=== PATIENT | female | born 1950 | race Caucasian/White ===

== ENCOUNTER 2017-08-18 10:42 | Emergency (ER) | payer MEDICARE ==
[~2017-08-18] VITALS: Ht 162.6 cm; Wt 61.0 kg
[2017-08-18] MEDS ORDERED: TRAZODONE100 MG PO (11:54)
[2017-08-18] MEDS ORDERED: TEMAZEPAM15 MG PO (11:54)
[2017-08-18] MEDS ORDERED: CYMBALTA60 MG PO (11:55)
[2017-08-18] MEDS ORDERED: VIIBRYD40 MG PO (11:56)
[2017-08-18] MEDS ORDERED: NEURONTIN100 MG PO (11:56)
[2017-08-18] MEDS ORDERED: ALPRAZOLAM1 MG PO (11:56)
[2017-08-18] MEDS ORDERED: METOPROL TAR25 MG PO (11:57)
[2017-08-18 12:13] LABS: URINE BILIRUBIN - DIPSTICK NEGATIVE (NEGATIVE); URINE BLOOD DIPSTICK MODERATE (NEGATIVE); URINE COLOR YELLOW; URINE GLUCOSE - DIPSTICK NEGATIVE (NEGATIVE); URINE KETONE NEGATIVE (NEGATIVE); URINE NITRITE - DIPSTICK NEGATIVE (Negative); URINE PROTEIN - DIPSTICK TRACE mg/dL (NEG-TRACE); URINE SPECIFIC GRAVITY 1.025; URINE UROBILINOGEN - DIPSTICK 0.2 E.U./dL (0.2)
[2017-08-18 12:15] LABS: URINE CLARITY HAZY; URINE LEUK ESTERASE MODERATE (NEGATIVE)
[2017-08-18 12:17] LABS: URINE BACTERIA FEW hpf; URINE EPITHELIAL CELLS MODERATE EPI/hpf (0-FEW); URINE WBC 20-50 WBC/hpf (0-5)
[2017-08-18 12:29] VITALS: BP 110/70
[2017-08-18] MEDS ORDERED: CEPHALEXIN500 M1 PO (13:04)
== END 2017-08-18 13:10 | disposition home or self-care (01) ==
LOC: ED 10:42
PROVIDERS: Family Medicine
DX: N39.0 Urinary tract infection, site not specified (principal); B96.20 Unspecified Escherichia coli [E. coli] as the cause of diseases classified elsewhere; Z16.12 Extended spectrum beta lactamase (ESBL) resistance; R30.0 Dysuria

== ENCOUNTER 2018-05-04 10:30 | Emergency (ER) | payer MEDICARE, MEDICAID ==
[~2018-05-04] VITALS: Ht 162.6 cm; Wt 60.5 kg
[~2018-05-04 10:30] MED LIST: ALPRAZOLAM1 MG PO; ATORVASTATIN CA20 MG PO; CEPHALEXIN500 M1 PO; CYMBALTA60 MG PO; ESCITALOPRAM OX10 MG PO; METOPROL TAR25 MG PO; NEURONTIN100 MG PO; TEMAZEPAM15 MG PO; TRAZODONE100 MG PO; VIIBRYD40 MG PO
[2018-05-04] MEDS ORDERED: RESTORIL15 MG PO (11:02)
[2018-05-04 11:12] LABS: HEMATOCRIT 37.1 % (37.0-47.0); HEMOGLOBIN 12.1 g/dl (12.0-16.0); IMMATURE GRANULOCYTES 0.5 % (0.0-5.0); MEAN CELL VOLUME 87.1 fL CALC (80.0-100.0); MEAN CORPUSCULAR HGB 28.4 pG CALC (26.0-32.0); MEAN CORPUSCULAR HGB CONC 32.6 g/L CALC (32.0-36.0); NEUT# 3.37 thou/uL (2.00-7.15); RED BLOOD COUNT 4.26 mill/uL (4.20-5.60); RED CELL DISTRI WIDTH 12.1 % (11.5-15.5)
[2018-05-04 11:28] LABS: ANION GAP 13 (6-22 (CALC)); BILIRUBIN, TOTAL 0.4 mg/dL (0.0-1.4); BUN 10 mg/dL (8-23); BUN/CREATININE RATIO 15 (12-20 (CALC)); CARBON DIOXIDE 27 mmol/l (22-30); CHLORIDE 103 mmol/l (95-108); CREATININE 0.7 mg/dL (0.5-1.0); GFR > 60 ML/MIN (>=60 (CALC)); GFR FOR AFR.AMER. > 60 ML/MIN (>=60 (CALC)); POTASSIUM 3.7 mmol/l (3.5-5.1); SGOT/AST 17 u/l (9-36); SGPT/ALT 28 u/l (11-66); SODIUM 140 mmol/l (137-146)
[2018-05-04 11:32] LABS: ALBUMIN 3.7 g/dL (3.2-5.0); ALKALINE PHOSPHATASE 114 u/l (38-126); TOTAL PROTEIN 6.4 g/dL (6.3-8.2)
[2018-05-04 11:36] LABS: URINE BILIRUBIN - DIPSTICK NEGATIVE (NEGATIVE); URINE BLOOD DIPSTICK NEGATIVE (NEGATIVE); URINE CLARITY CLEAR; URINE COLOR YELLOW; URINE GLUCOSE - DIPSTICK NEGATIVE (NEGATIVE); URINE KETONE NEGATIVE (NEGATIVE); URINE LEUK ESTERASE NEGATIVE (NEGATIVE); URINE NITRITE - DIPSTICK NEGATIVE (Negative); URINE PROTEIN - DIPSTICK NEGATIVE (NEG-TRACE); URINE SPECIFIC GRAVITY <=1.005; URINE UROBILINOGEN - DIPSTICK 0.2 E.U./dL (0.2)
[2018-05-04 11:38] LABS: MYOGLOBIN 37 ng/mL (0 - 62)
[2018-05-04] MEDS ORDERED: ANTIVERT PO (12:11)
[2018-05-04 12:22] VITALS: BP 132/60
== END 2018-05-04 12:31 | disposition home or self-care (01) ==
LOC: ED 10:30
DX: R42 Dizziness and giddiness (principal); R91.8 Other nonspecific abnormal finding of lung field; I48.91 Unspecified atrial fibrillation; S42.002D Fracture of unspecified part of left clavicle, subsequent encounter for fracture with routine healing; S22.42XD Multiple fractures of ribs, left side, subsequent encounter for fracture with routine healing; W19.XXXD Unspecified fall, subsequent encounter; Z86.73 Personal history of transient ischemic attack (TIA), and cerebral infarction without residual deficits

== ENCOUNTER 2018-08-29 19:57 | Emergency (ER) | payer MEDICARE, MEDICAID ==
[~2018-08-29] VITALS: Ht 162.6 cm; Wt 60.0 kg
[~2018-08-29 19:57] MED LIST changes: +ANTIVERT PO; +RESTORIL15 MG PO
[2018-08-29] MEDS ORDERED: MIRALAX3350 N1 PO (20:57)
[2018-08-29] MEDS ORDERED: MAGNESIUM296 ML/BTL PO (20:57)
[2018-08-29 21:06] VITALS: BP 120/70
== END 2018-08-29 21:16 | disposition home or self-care (01) ==
LOC: ED 19:57
DX: K59.00 Constipation, unspecified (principal); I48.91 Unspecified atrial fibrillation; Z86.73 Personal history of transient ischemic attack (TIA), and cerebral infarction without residual deficits

== ENCOUNTER 2018-09-28 11:46 | Emergency (ER) | payer MEDICARE, MEDICAID ==
[~2018-09-28] VITALS: Ht 162.6 cm; Wt 59.0 kg
[~2018-09-28 11:46] MED LIST changes: +MAGNESIUM296 ML/BTL PO; +MIRALAX3350 N1 PO
[2018-09-28] MEDS ORDERED: CIPROFLOXACN500 MG PO (12:33)
[2018-09-28 13:16] LABS: HEMATOCRIT 35.7 % (37.0-47.0); HEMOGLOBIN 11.3 g/dl (12.0-16.0); IMMATURE GRANULOCYTES 0.2 % (0.0-5.0); MEAN CELL VOLUME 89.3 fL CALC (80.0-100.0); MEAN CORPUSCULAR HGB 28.3 pG CALC (26.0-32.0); MEAN CORPUSCULAR HGB CONC 31.7 g/L CALC (32.0-36.0); NEUT# 2.05 thou/uL (2.00-7.15); RED CELL DISTRI WIDTH 12.2 % (11.5-15.5)
[2018-09-28 13:34] LABS: ALBUMIN 3.7 g/dL (3.2-5.0); ANION GAP 12 (6-22 (CALC)); BILIRUBIN, TOTAL 0.7 mg/dL (0.0-1.4); BUN 12 mg/dL (8-23); BUN/CREATININE RATIO 16 (12-20 (CALC)); CARBON DIOXIDE 29 mmol/l (22-30); CHLORIDE 97 mmol/l (95-108); CREATININE 0.8 mg/dL (0.5-1.0); GFR > 60 ML/MIN (>=60 (CALC)); GFR FOR AFR.AMER. > 60 ML/MIN (>=60 (CALC)); POTASSIUM 4.3 mmol/l (3.5-5.1); SGOT/AST 24 u/l (9-36); SODIUM 134 mmol/l (137-146); TOTAL PROTEIN 6.3 g/dL (6.3-8.2)
[2018-09-28 13:36] LABS: ALKALINE PHOSPHATASE 52 u/l (38-126)
[2018-09-28 16:25] VITALS: BP 109/53
== END 2018-09-28 16:25 | disposition home or self-care (01) ==
LOC: ED 11:46
DX: K59.00 Constipation, unspecified (principal); I48.91 Unspecified atrial fibrillation; Z86.73 Personal history of transient ischemic attack (TIA), and cerebral infarction without residual deficits

== ENCOUNTER 2020-12-11 12:22 | Emergency (ER) | payer MEDICARE, MEDICAID ==
[~2020-12-11 12:22] MED LIST changes: +CIPROFLOXACN500 MG PO; +LEXAPRO20 MG PO
[2020-12-11 12:42] VITALS: BP 112/70
[2020-12-11] MEDS ORDERED: FOLIC ACID1 MG PO (12:45)
[2020-12-11] MEDS ORDERED: ELIQUIS5 MG PO (12:45)
[2020-12-11] MEDS ORDERED: VENLAFAXINE HCL75 M1 PO (12:45)
[2020-12-11] MEDS ORDERED: RESTORIL15 MG PO (12:51)
[2020-12-11] MEDS ORDERED: XANAX1 MG PO (12:51)
== END 2020-12-11 13:04 | disposition home or self-care (01) ==
LOC: ED 12:22
DX: Z76.0 Encounter for issue of repeat prescription (principal); F41.9 Anxiety disorder, unspecified; I48.91 Unspecified atrial fibrillation; Z86.73 Personal history of transient ischemic attack (TIA), and cerebral infarction without residual deficits

== ENCOUNTER 2021-05-16 17:52 | Emergency (ER) | payer MEDICARE, MEDICAID ==
[~2021-05-16] VITALS: Ht 162.6 cm; Wt 60.0 kg
[~2021-05-16 17:52] MED LIST changes: +ELIQUIS5 MG PO; +FOLIC ACID1 MG PO; +VENLAFAXINE HCL75 M1 PO; +XANAX1 MG PO
[2021-05-16 21:10] VITALS: BP 104/72
== END 2021-05-16 21:10 | disposition home or self-care (01) ==
LOC: ED 17:52
DX: S93.402A Sprain of unspecified ligament of left ankle, initial encounter (principal); S93.602A Unspecified sprain of left foot, initial encounter; I48.91 Unspecified atrial fibrillation; W17.89XA Other fall from one level to another, initial encounter; Y92.008 Other place in unspecified non-institutional (private) residence as the place of occurrence of the external cause; Z86.73 Personal history of transient ischemic attack (TIA), and cerebral infarction without residual deficits; Z86.718 Personal history of other venous thrombosis and embolism; Z86.711 Personal history of pulmonary embolism

== ENCOUNTER 2021-08-03 12:06 | Emergency (ER) | payer MEDICARE, MEDICAID ==
[~2021-08-03] VITALS: Ht 162.6 cm; Wt 63.6 kg
[2021-08-03] MEDS ORDERED: LEXAPRO20 MG PO (12:28)
[2021-08-03] MEDS ORDERED: XANAX1 MG PO (12:29)
[2021-08-03] MEDS ORDERED: VENLAFAXINE150 M1 PO (12:30)
[2021-08-03] MEDS ORDERED: TRAZODONE100 MG PO (12:31)
[2021-08-03 12:53] LABS: HEMATOCRIT 40.2 % (37.0-47.0); HEMOGLOBIN 12.9 g/dl (12.0-16.0); IMMATURE GRANULOCYTES 0.4 % (0.0-5.0); MEAN CELL VOLUME 88.7 fL CALC (80.0-100.0); MEAN CORPUSCULAR HGB 28.5 pG CALC (26.0-32.0); MEAN CORPUSCULAR HGB CONC 32.1 g/dL CAL (32.0-36.0); NEUT# 2.42 thou/uL (2.00-7.15); RED BLOOD COUNT 4.53 mill/uL (4.20-5.60); RED CELL DISTRI WIDTH 11.9 % (11.5-15.5)
[2021-08-03 13:00] LABS: ALBUMIN 4.1 g/dL (3.2-5.0); ALKALINE PHOSPHATASE 64 u/l (38-126); ANION GAP 12 (6-22 (CALC)); BUN 9 mg/dL (8-23); BUN/CREATININE RATIO 11 (12-20 (CALC)); CARBON DIOXIDE 30 mmol/l (22-30); CHLORIDE 100 mmol/l (95-108); CREATININE 0.9 mg/dL (0.5-1.0); GFR > 60 ML/MIN (>=60 (CALC)); GFR FOR AFR.AMER. > 60 ML/MIN (>=60 (CALC)); MAGNESIUM 1.8 mg/dL (1.6-2.3); POTASSIUM 3.4 mmol/l (3.5-5.1); SGOT/AST 25 u/l (9-36); SODIUM 138 mmol/l (137-146); TOTAL PROTEIN 7.5 g/dL (6.3-8.2)
[2021-08-03 13:09] LABS: BILIRUBIN, TOTAL 0.6 mg/dL (0.0-1.4)
[2021-08-03 13:11] LABS: URINE BILIRUBIN - DIPSTICK NEGATIVE (NEGATIVE); URINE BLOOD DIPSTICK NEGATIVE (NEGATIVE); URINE COLOR YELLOW; URINE GLUCOSE - DIPSTICK NEGATIVE (NEGATIVE); URINE KETONE NEGATIVE (NEGATIVE); URINE LEUK ESTERASE TRACE (NEGATIVE); URINE PH 6.5 (4.5-8.0); URINE PROTEIN - DIPSTICK NEGATIVE (NEG-TRACE); URINE UROBILINOGEN - DIPSTICK 0.2 E.U./dL (0.2)
[2021-08-03 13:12] LABS: URINE NITRITE - DIPSTICK NEGATIVE (Negative)
[2021-08-03 14:29] VITALS: BP 124/67
== END 2021-08-03 14:29 | disposition home or self-care (01) ==
LOC: ED 12:06
PROVIDERS: Emergency Medicine
DX: F41.0 Panic disorder [episodic paroxysmal anxiety] (principal); I48.91 Unspecified atrial fibrillation; Z86.711 Personal history of pulmonary embolism; Z79.01 Long term (current) use of anticoagulants; Z85.118 Personal history of other malignant neoplasm of bronchus and lung; Z86.73 Personal history of transient ischemic attack (TIA), and cerebral infarction without residual deficits; Z20.822 Contact with and (suspected) exposure to COVID-19
CPT/HCPCS: J2060

== ENCOUNTER 2021-08-18 11:12 | Emergency (ER) | payer MEDICARE, MEDICAID ==
[~2021-08-18] VITALS: Ht 162.6 cm; Wt 61.4 kg
[~2021-08-18 11:12] MED LIST changes: +VENLAFAXINE150 M1 PO
[2021-08-18 14:15] LABS: HEMATOCRIT 38.5 % (37.0-47.0); HEMOGLOBIN 12.4 g/dl (12.0-16.0); MEAN CELL VOLUME 88.5 fL CALC (80.0-100.0); MEAN CORPUSCULAR HGB 28.5 pG CALC (26.0-32.0); MEAN CORPUSCULAR HGB CONC 32.2 g/dL CAL (32.0-36.0); NEUT# 1.12 thou/uL (2.00-7.15); RED BLOOD COUNT 4.35 mill/uL (4.20-5.60); RED CELL DISTRI WIDTH 11.9 % (11.5-15.5)
[2021-08-18 14:25] LABS: ALBUMIN 3.8 g/dL (3.2-5.0); ALKALINE PHOSPHATASE 92 u/l (38-126); BILIRUBIN, TOTAL 0.5 mg/dL (0.0-1.4); BUN 12 mg/dL (8-23); BUN/CREATININE RATIO 16 (12-20 (CALC)); CARBON DIOXIDE 32 mmol/l (22-30); CHLORIDE 97 mmol/l (95-108); CREATININE 0.8 mg/dL (0.5-1.0); GFR > 60 ML/MIN (>=60 (CALC)); GFR FOR AFR.AMER. > 60 ML/MIN (>=60 (CALC)); SODIUM 132 mmol/l (137-146)
[2021-08-18 14:26] LABS: ANION GAP 7 (6-22 (CALC)); POTASSIUM 4.1 mmol/l (3.5-5.1); SGOT/AST 62 u/l (9-36)
[2021-08-18] MEDS ORDERED: ZOFRAN4 M1 PO (15:27)
[2021-08-18 16:54] VITALS: BP 139/67
== END 2021-08-18 16:57 | disposition home or self-care (01) ==
LOC: ED 11:12
PROVIDERS: Family Medicine
DX: U07.1 COVID-19 (principal); I48.91 Unspecified atrial fibrillation; Z86.73 Personal history of transient ischemic attack (TIA), and cerebral infarction without residual deficits; Z85.9 Personal history of malignant neoplasm, unspecified; Z86.711 Personal history of pulmonary embolism; Z86.718 Personal history of other venous thrombosis and embolism

== ENCOUNTER 2021-11-05 10:16 | Observation (INO) | payer MEDICARE, MEDICAID ==
[2021-11-05] VITALS (21 sets, daily range): BP systolic 106–144; BP diastolic 44–69
[~2021-11-05] VITALS: Ht 162.6 cm; Wt 60.0 kg
[~2021-11-05 10:16] MED LIST changes: +ZOFRAN4 M1 PO
[2021-11-05 11:01] LABS: HEMATOCRIT 39.6 % (37.0-47.0); HEMOGLOBIN 12.5 g/dl (12.0-16.0); IMMATURE GRANULOCYTES 0.2 % (0.0-5.0); MEAN CORPUSCULAR HGB 28.4 pG CALC (26.0-32.0); MEAN CORPUSCULAR HGB CONC 31.6 g/dL CAL (32.0-36.0); NEUT# 3.08 thou/uL (2.00-7.15); RED BLOOD COUNT 4.4 mill/uL (4.20-5.60); RED CELL DISTRI WIDTH 12.3 % (11.5-15.5)
[2021-11-05 11:18] LABS: ALBUMIN 4.1 g/dL (3.2-5.0); ALKALINE PHOSPHATASE 56 u/l (38-126); BILIRUBIN, TOTAL 0.5 mg/dL (0.0-1.4); BUN 9 mg/dL (8-23); BUN/CREATININE RATIO 10 (12-20 (CALC)); CARBON DIOXIDE 28 mmol/l (22-30); CHLORIDE 104 mmol/l (95-108); CREATININE 0.9 mg/dL (0.5-1.0); GFR > 60 ML/MIN (>=60 (CALC)); GFR FOR AFR.AMER. > 60 ML/MIN (>=60 (CALC)); SGOT/AST 23 u/l (9-36); SODIUM 138 mmol/l (137-146); TOTAL PROTEIN 7.4 g/dL (6.3-8.2)
[2021-11-05 11:20] LABS: ANION GAP 10 (6-22 (CALC)); POTASSIUM 3.5 mmol/l (3.5-5.1)
[2021-11-05] MEDS ORDERED: VENLAFAXINE HCL75 M1 PO (15:23)
[2021-11-06] VITALS: BP 106/40
[2021-11-06 04:42] VITALS: BP 103/40
[2021-11-06 05:45] LABS: HEMATOCRIT 34.1 % (37.0-47.0); HEMOGLOBIN 11.1 g/dl (12.0-16.0); MEAN CELL VOLUME 90.2 fL CALC (80.0-100.0); MEAN CORPUSCULAR HGB 29.4 pG CALC (26.0-32.0); MEAN CORPUSCULAR HGB CONC 32.6 g/dL CAL (32.0-36.0); RED BLOOD COUNT 3.78 mill/uL (4.20-5.60); RED CELL DISTRI WIDTH 12.5 % (11.5-15.5)
[2021-11-06 05:51] LABS: ANION GAP 8 (6-22 (CALC)); BUN 10 mg/dL (8-23); BUN/CREATININE RATIO 13 (12-20 (CALC)); CARBON DIOXIDE 28 mmol/l (22-30); CHLORIDE 106 mmol/l (95-108); CREATININE 0.8 mg/dL (0.5-1.0); GFR > 60 ML/MIN (>=60 (CALC)); GFR FOR AFR.AMER. > 60 ML/MIN (>=60 (CALC)); MAGNESIUM 1.8 mg/dL (1.6-2.3); POTASSIUM 3.9 mmol/l (3.5-5.1); SODIUM 138 mmol/l (137-146)
[2021-11-06 09:20] VITALS: BP 111/56
[2021-11-06 10:21] VITALS: BP 89/45
[2021-11-06 10:28] VITALS: BP 112/48
[2021-11-06] MEDS ORDERED: OMNICEF300 MG PO (11:42)
[2021-11-06] MEDS ORDERED: AZITHROMYCIN500 MG PO (11:42)
== END 2021-11-06 14:38 | disposition home or self-care (01) ==
LOC: ED 10:16 → ED-I 14:40 → ED 14:52 → MS2 14:53
PROVIDERS: Internal Medicine; ADMIT Hospitalist; ATTEND Hospitalist
DX: J18.9 Pneumonia, unspecified organism (principal); J92.9 Pleural plaque without asbestos; I48.91 Unspecified atrial fibrillation; C56.9 Malignant neoplasm of unspecified ovary; Z86.73 Personal history of transient ischemic attack (TIA), and cerebral infarction without residual deficits; Z86.711 Personal history of pulmonary embolism; Z79.01 Long term (current) use of anticoagulants; Z95.828 Presence of other vascular implants and grafts; Z20.822 Contact with and (suspected) exposure to COVID-19; M79.604 Pain in right leg
CPT/HCPCS: Q9967

== ENCOUNTER 2022-01-20 12:04 | Emergency (ER) | payer MEDICARE, MEDICAID ==
[~2022-01-20] VITALS: Ht 162.6 cm; Wt 58.0 kg
[2022-01-20] VITALS (12 sets, daily range): BP systolic 112–147; BP diastolic 52–69
[~2022-01-20 12:04] MED LIST changes: +AZITHROMYCIN500 MG PO; +OMNICEF300 MG PO
[2022-01-20 12:33] LABS: HEMATOCRIT 39.7 % (37.0-47.0); HEMOGLOBIN 12.4 g/dl (12.0-16.0); IMMATURE GRANULOCYTES 0.2 % (0.0-5.0); MEAN CELL VOLUME 89.6 fL CALC (80.0-100.0); MEAN CORPUSCULAR HGB CONC 31.2 g/dL CAL (32.0-36.0); NEUT# 2.65 thou/uL (2.00-7.15); RED BLOOD COUNT 4.43 mill/uL (4.20-5.60); RED CELL DISTRI WIDTH 11.9 % (11.5-15.5)
[2022-01-20 12:44] LABS: ALBUMIN 3.9 g/dL (3.2-5.0); ALKALINE PHOSPHATASE 53 u/l (38-126); ANION GAP 10 (6-22 (CALC)); BILIRUBIN, TOTAL 0.3 mg/dL (0.0-1.4); BUN 11 mg/dL (8-23); BUN/CREATININE RATIO 12 (12-20 (CALC)); CARBON DIOXIDE 29 mmol/l (22-30); CHLORIDE 105 mmol/l (95-108); CREATININE 0.9 mg/dL (0.5-1.0); GFR FOR AFR.AMER. > 60 ML/MIN (>=60 (CALC)); GFR OTHER RACES > 60 ML/MIN (>=60 (CALC)); POTASSIUM 3.8 mmol/l (3.5-5.1); SGOT/AST 22 u/l (9-36); SODIUM 139 mmol/l (137-146)
[2022-01-20] MEDS ORDERED: VENLAFAXINE HCL75 M1 PO (12:52)
[2022-01-20] MEDS ORDERED: ESCITALOPRAM OX10 MG PO (12:53)
[2022-01-20] MEDS ORDERED: TRAZODONE50 MG PO (12:54)
[2022-01-20] MEDS ORDERED: ELIQUIS5 MG PO (12:54)
[2022-01-20] MEDS ORDERED: TEMAZEPAM15 MG PO (12:55)
[2022-01-20] MEDS ORDERED: ALPRAZOLAM1 MG PO (12:56)
[2022-01-20] MEDS ORDERED: METOPROL TAR25 MG PO (12:56)
[2022-01-20 14:51] LABS: URINE BILIRUBIN - DIPSTICK NEGATIVE (NEGATIVE); URINE BLOOD DIPSTICK NEGATIVE (NEGATIVE); URINE COLOR YELLOW; URINE GLUCOSE - DIPSTICK NEGATIVE (NEGATIVE); URINE KETONE NEGATIVE (NEGATIVE); URINE PROTEIN - DIPSTICK NEGATIVE (NEG-TRACE); URINE SPECIFIC GRAVITY 1.015; URINE UROBILINOGEN - DIPSTICK 0.2 E.U./dL (0.2)
[2022-01-20 14:53] LABS: URINE LEUK ESTERASE SMALL (NEGATIVE); URINE NITRITE - DIPSTICK NEGATIVE (Negative)
[2022-01-20 14:59] LABS: URINE SQUAMOUS EPITHELIAL CELL FEW EPI/hpf (0-FEW)
[2022-01-20] MEDS ORDERED: OMNICEF300 M1 PO (16:24)
== END 2022-01-20 16:58 | disposition home or self-care (01) ==
LOC: ED 12:04
PROVIDERS: Family Medicine
DX: R55 Syncope and collapse (principal); N39.0 Urinary tract infection, site not specified; B96.5 Pseudomonas (aeruginosa) (mallei) (pseudomallei) as the cause of diseases classified elsewhere; M16.11 Unilateral primary osteoarthritis, right hip; I10 Essential (primary) hypertension; I48.91 Unspecified atrial fibrillation; Z86.73 Personal history of transient ischemic attack (TIA), and cerebral infarction without residual deficits; Z86.718 Personal history of other venous thrombosis and embolism; Z20.822 Contact with and (suspected) exposure to COVID-19; M79.604 Pain in right leg

== ENCOUNTER 2022-04-11 09:57 | Emergency (ER) | payer MEDICARE, MEDICAID ==
[~2022-04-11] VITALS: Ht 162.6 cm; Wt 60.9 kg
[~2022-04-11 09:57] MED LIST changes: +OMNICEF300 M1 PO; +TRAZODONE50 MG PO
[2022-04-11 10:44] LABS: URINE BILIRUBIN - DIPSTICK NEGATIVE (NEGATIVE); URINE BLOOD DIPSTICK NEGATIVE (NEGATIVE); URINE COLOR YELLOW; URINE GLUCOSE - DIPSTICK NEGATIVE (NEGATIVE); URINE KETONE NEGATIVE (NEGATIVE); URINE LEUK ESTERASE NEGATIVE (NEGATIVE); URINE PROTEIN - DIPSTICK NEGATIVE (NEG-TRACE); URINE UROBILINOGEN - DIPSTICK 0.2 E.U./dL (0.2)
[2022-04-11 10:52] LABS: HEMATOCRIT 35.2 % (37.0-47.0); HEMOGLOBIN 11.5 g/dl (12.0-16.0); IMMATURE GRANULOCYTES 0.2 % (0.0-5.0); MEAN CELL VOLUME 86.5 fL CALC (80.0-100.0); MEAN CORPUSCULAR HGB 28.3 pG CALC (26.0-32.0); MEAN CORPUSCULAR HGB CONC 32.7 g/dL CAL (32.0-36.0); NEUT# 1.97 thou/uL (2.00-7.15); RED BLOOD COUNT 4.07 mill/uL (4.20-5.60); RED CELL DISTRI WIDTH 12.2 % (11.5-15.5)
[2022-04-11 10:56] LABS: URINE NITRITE - DIPSTICK NEGATIVE (Negative)
[2022-04-11 11:09] LABS: ALKALINE PHOSPHATASE 49 u/l (38-126); ANION GAP 11 (6-22 (CALC)); BUN 8 mg/dL (8-23); BUN/CREATININE RATIO 11 (12-20 (CALC)); CARBON DIOXIDE 26 mmol/l (22-30); CHLORIDE 104 mmol/l (95-108); CREATININE 0.8 mg/dL (0.5-1.0); GFR FOR AFR.AMER. > 60 ML/MIN (>=60 (CALC)); GFR OTHER RACES > 60 ML/MIN (>=60 (CALC)); POTASSIUM 4.1 mmol/l (3.5-5.1); SGOT/AST 23 u/l (9-36); SODIUM 137 mmol/l (137-146); TOTAL PROTEIN 7.1 g/dL (6.3-8.2)
[2022-04-11 11:11] LABS: BILIRUBIN, TOTAL 0.5 mg/dL (0.0-1.4)
[2022-04-11 13:30] VITALS: BP 132/67
[2022-04-11] MEDS ORDERED: TRAMADOL HYDROC50 M1 PO (13:38)
[2022-04-11 14:00] VITALS: BP 126/62
== END 2022-04-11 14:16 | disposition home or self-care (01) ==
LOC: ED 09:57
PROVIDERS: Family Medicine
DX: M25.511 Pain in right shoulder (principal); M54.50 Low back pain, unspecified; R07.81 Pleurodynia; M89.9 Disorder of bone, unspecified; I10 Essential (primary) hypertension; I48.91 Unspecified atrial fibrillation; R53.1 Weakness; W01.0XXA Fall on same level from slipping, tripping and stumbling without subsequent striking against object, initial encounter; Y92.009 Unspecified place in unspecified non-institutional (private) residence as the place of occurrence of the external cause; Z86.73 Personal history of transient ischemic attack (TIA), and cerebral infarction without residual deficits; Z86.718 Personal history of other venous thrombosis and embolism; Z86.711 Personal history of pulmonary embolism
CPT/HCPCS: Q9967

== ENCOUNTER 2022-08-21 18:58 | Emergency (ER) | payer MEDICARE, MEDICAID ==
[2022-08-21] VITALS (15 sets, daily range): BP systolic 122–156; BP diastolic 59–77
[~2022-08-21] VITALS: Ht 162.6 cm; Wt 64.0 kg
[~2022-08-21 18:58] MED LIST changes: +TRAMADOL HYDROC50 M1 PO
[2022-08-21 19:41] LABS: BASO% 0.4 % (0-3); EOS% 2.2 % (0-8); HEMATOCRIT 32.6 % (37.0-47.0); HEMOGLOBIN 10.6 g/dl (12.0-16.0); IMMATURE GRANULOCYTES 0.2 % (0.0-5.0); MEAN CELL VOLUME 88.6 fL CALC (80.0-100.0); MEAN CORPUSCULAR HGB 28.8 pG CALC (26.0-32.0); MEAN CORPUSCULAR HGB CONC 32.5 g/dL CAL (32.0-36.0); MONO% 9.9 % (2-13); NEUT# 3.62 thou/uL (2.00-7.15); NEUT% 71.3 % (42-76); RED BLOOD COUNT 3.68 mill/uL (4.20-5.60); RED CELL DISTRI WIDTH 12.8 % (11.5-15.5)
[2022-08-21 19:59] LABS: ALBUMIN 3.7 g/dL (3.2-5.0); ALKALINE PHOSPHATASE 51 u/l (38-126); BILIRUBIN, TOTAL 0.3 mg/dL (0.0-1.4); BUN 13 mg/dL (8-23); BUN/CREATININE RATIO 18 (12-20 (CALC)); CARBON DIOXIDE 27 mmol/l (22-30); CHLORIDE 103 mmol/l (95-108); CPK 128 u/l (30-165); CREATININE 0.8 mg/dL (0.5-1.0); GFR FOR AFR.AMER. > 60 ML/MIN (>=60 (CALC)); GFR OTHER RACES > 60 ML/MIN (>=60 (CALC)); MAGNESIUM 1.9 mg/dL (1.6-2.3); SGOT/AST 34 u/l (9-36); SODIUM 137 mmol/l (137-146); TOTAL PROTEIN 6.7 g/dL (6.3-8.2)
[2022-08-21 20:03] LABS: ACT PARTIAL THROMBO TIME 29.2 SECONDS (20.0-32.5); PROTHROMBIN TIME 10.4 SECONDS (9.0-12.5)
[2022-08-21 20:05] LABS: ANION GAP 10 (6-22 (CALC)); POTASSIUM 2.8 mmol/l (3.5-5.1)
[2022-08-21 20:29] LABS: TSH, 3RD GENERATION 2.13 uIU/mL (0.47 - 4.68)
[2022-08-21 21:30] LABS: URINE BILIRUBIN - DIPSTICK NEGATIVE (NEGATIVE); URINE BLOOD DIPSTICK NEGATIVE (NEGATIVE); URINE COLOR YELLOW; URINE GLUCOSE - DIPSTICK NEGATIVE (NEGATIVE); URINE KETONE NEGATIVE (NEGATIVE); URINE LEUK ESTERASE NEGATIVE (NEGATIVE); URINE PH 5.5 (4.5-8.0); URINE PROTEIN - DIPSTICK NEGATIVE (NEG-TRACE); URINE SPECIFIC GRAVITY >=1.030; URINE UROBILINOGEN - DIPSTICK 0.2 E.U./dL (0.2)
[2022-08-21 21:32] LABS: URINE NITRITE - DIPSTICK NEGATIVE (Negative)
[2022-08-21] MEDS ORDERED: POT CHLORIDE20 ME2 PO (21:49)
== END 2022-08-21 22:48 | disposition home or self-care (01) ==
LOC: ED 18:58
PROVIDERS: Family Medicine
DX: U07.1 COVID-19 (principal); R53.1 Weakness; R51.9 Headache, unspecified; E87.6 Hypokalemia; I10 Essential (primary) hypertension; I48.91 Unspecified atrial fibrillation; Z86.711 Personal history of pulmonary embolism; Z91.81 History of falling; Z86.73 Personal history of transient ischemic attack (TIA), and cerebral infarction without residual deficits

== ENCOUNTER 2022-08-26 04:22 | Emergency (ER) | payer MEDICARE, MEDICAID ==
[~2022-08-26] VITALS: Ht 162.6 cm; Wt 64.0 kg
[~2022-08-26 04:22] MED LIST changes: +POT CHLORIDE20 ME2 PO
[2022-08-26 05:15] LABS: BASO% 0.4 % (0-3); EOS% 7.4 % (0-8); HEMOGLOBIN 11.2 g/dl (12.0-16.0); IMMATURE GRANULOCYTES 0.2 % (0.0-5.0); LYMPH% 37.8 % (15-41); MEAN CELL VOLUME 90.7 fL CALC (80.0-100.0); MEAN CORPUSCULAR HGB 28.2 pG CALC (26.0-32.0); MEAN CORPUSCULAR HGB CONC 31.1 g/dL CAL (32.0-36.0); MONO% 7.4 % (2-13); NEUT# 2.34 thou/uL (2.00-7.15); NEUT% 46.8 % (42-76); RED BLOOD COUNT 3.97 mill/uL (4.20-5.60); RED CELL DISTRI WIDTH 12.9 % (11.5-15.5)
[2022-08-26 05:29] LABS: ALBUMIN 3.7 g/dL (3.2-5.0); ALKALINE PHOSPHATASE 65 u/l (38-126); BILIRUBIN, TOTAL 0.2 mg/dL (0.0-1.4); BUN 5 mg/dL (8-23); BUN/CREATININE RATIO 7 (12-20 (CALC)); CARBON DIOXIDE 30 mmol/l (22-30); CHLORIDE 107 mmol/l (95-108); CPK 173 u/l (30-165); CREATININE 0.8 mg/dL (0.5-1.0); GFR FOR AFR.AMER. > 60 ML/MIN (>=60 (CALC)); GFR OTHER RACES > 60 ML/MIN (>=60 (CALC)); MAGNESIUM 1.8 mg/dL (1.6-2.3); SGOT/AST 35 u/l (9-36); SODIUM 140 mmol/l (137-146); TOTAL PROTEIN 6.6 g/dL (6.3-8.2)
[2022-08-26 05:31] LABS: ANION GAP 7 (6-22 (CALC)); POTASSIUM 3.6 mmol/l (3.5-5.1)
[2022-08-26] MEDS ORDERED: IMODIUM2 MG PO (06:44)
[2022-08-26 06:54] VITALS: BP 142/101
== END 2022-08-26 07:15 | disposition home or self-care (01) ==
LOC: ED 04:22
PROVIDERS: Family Medicine
DX: U07.1 COVID-19 (principal); R19.7 Diarrhea, unspecified; I10 Essential (primary) hypertension; I48.91 Unspecified atrial fibrillation; S40.022D Contusion of left upper arm, subsequent encounter; S40.021D Contusion of right upper arm, subsequent encounter; X58.XXXD Exposure to other specified factors, subsequent encounter; Z86.73 Personal history of transient ischemic attack (TIA), and cerebral infarction without residual deficits; Z86.718 Personal history of other venous thrombosis and embolism; Z86.711 Personal history of pulmonary embolism

== ENCOUNTER 2022-09-19 20:42 | Emergency (ER) | payer MEDICARE, MEDICAID ==
[~2022-09-19] VITALS: Ht 162.6 cm; Wt 61.0 kg
[~2022-09-19 20:42] MED LIST changes: +IMODIUM2 MG PO
[2022-09-19 20:52] VITALS: BP 124/67
[2022-09-19 21:00] VITALS: BP 124/63
[2022-09-19 21:15] VITALS: BP 110/47
[2022-09-19 21:30] VITALS: BP 122/55
[2022-09-19 22:59] LABS: BASO% 0.4 % (0-3); EOS% 4.7 % (0-8); HEMOGLOBIN 10.2 g/dl (12.0-16.0); IMMATURE GRANULOCYTES 0.1 % (0.0-5.0); LYMPH% 26.7 % (15-41); MEAN CELL VOLUME 90.2 fL CALC (80.0-100.0); MEAN CORPUSCULAR HGB 27.1 pG CALC (26.0-32.0); MONO% 5.5 % (2-13); NEUT# 4.62 thou/uL (2.00-7.15); NEUT% 62.6 % (42-76); RED BLOOD COUNT 3.77 mill/uL (4.20-5.60); RED CELL DISTRI WIDTH 12.9 % (11.5-15.5)
[2022-09-19 23:23] LABS: ALBUMIN 3.5 g/dL (3.2-5.0); ALKALINE PHOSPHATASE 76 u/l (38-126); ANION GAP 9 (6-22 (CALC)); BUN 13 mg/dL (8-23); BUN/CREATININE RATIO 16 (12-20 (CALC)); CARBON DIOXIDE 28 mmol/l (22-30); CHLORIDE 105 mmol/l (95-108); CREATININE 0.8 mg/dL (0.5-1.0); GFR FOR AFR.AMER. > 60 ML/MIN (>=60 (CALC)); GFR OTHER RACES > 60 ML/MIN (>=60 (CALC)); POTASSIUM 3.9 mmol/l (3.5-5.1); SGOT/AST 27 u/l (9-36); SODIUM 138 mmol/l (137-146); TOTAL PROTEIN 6.2 g/dL (6.3-8.2)
[2022-09-19 23:28] LABS: BILIRUBIN, TOTAL 0.4 mg/dL (0.02-1.3)
[2022-09-20 00:25] VITALS: BP 122/55
== END 2022-09-20 00:26 | disposition home or self-care (01) ==
LOC: ED 20:42
PROVIDERS: Family Medicine
PROC: 0HQ1XZZ Repair Face Skin, External Approach (ICD-10-PCS; principal; 2022-09-19)
DX: S02.2XXA Fracture of nasal bones, initial encounter for closed fracture (principal); S01.21XA Laceration without foreign body of nose, initial encounter; I10 Essential (primary) hypertension; I48.91 Unspecified atrial fibrillation; W19.XXXA Unspecified fall, initial encounter; Y92.009 Unspecified place in unspecified non-institutional (private) residence as the place of occurrence of the external cause; Z86.711 Personal history of pulmonary embolism; Z86.718 Personal history of other venous thrombosis and embolism; Z86.73 Personal history of transient ischemic attack (TIA), and cerebral infarction without residual deficits